=== PATIENT | female | born 1935 | race Caucasian/White ===

== ENCOUNTER 2017-01-14 07:57 | Emergency (ER) ==
[2017-01-14 09:27] LABS: URINE CULTURE NEEDED? NO; URINE MICRO REVIEW NEEDED? NO; URINE SOURCE CLEAN CATCH
[2017-01-14 09:27] LABS: MANUAL DIFF NEEDED? NO
[2017-01-14 09:31] LABS: BILIRUBIN URINE NEGATIVE (NEGATIVE); BLOOD URINE SMALL (NEGATIVE); COLOR YELLOW; GLUCOSE URINE NEGATIVE (NEGATIVE); LEUKOCYTES URINE NEGATIVE (NEGATIVE); NITRITE URINE NEGATIVE (NEGATIVE); PH URINE 5.5; PROTEIN URINE 50 mg/dL (NEGATIVE); SP GRAVITY URINE 1.019; TURBIDITY URINE HAZY (CLEAR); UROBILINOGEN URINE NORMAL (NORMAL)
[2017-01-14 09:31] LABS: BASO% 0.1 % (0.0-0.8); HEMATOCRIT 38.6 % (37.0-47.0); HEMOGLOBIN 13.1 g/dL (12.0-16.0); LYMPH# 0.64 X1000 (1.2-3.4); LYMPH% 8.2 % (20.5-51.1); MCH 29.5 PG (27-31); MCHC 33.9 g/dL (33-37); MCV 86.9 FL (81-99); MONO# 0.86 X1000 (0.11-0.59); MPV 10.2 FL (7.4-10.4); NEUT% 80.7 % (42.2-75.2); PLT 226 X1000 (130-400); RBC 4.44 XMIL (4.2-5.4)
[2017-01-14 09:33] LABS: UR EPITHELIAL CELLS <10 /HPF (<10); URINE BACTERIA NEGATIVE /HPF; URINE RBC <10 /HPF (<10); URINE WBC <10 /HPF (<10)
--- NOTE | 2017-01-14 09:34 | PROVIDER DOCUMENTATION ---
HPI-General Adult - General Chief Complaint: Altered Mental Status Stated Complaint: confusion Time Seen by Provider: 01/14/17 08:47 Source: patient Allergies/Adverse Reactions: Patient Allergies Allergy/AdvReac Type Severity Reaction Status Date / Time No Known Allergies Allergy Verified 01/14/17 08:07 Home Medications: Home Medication List Medication Instructions Recorded Confirmed Last Taken Type Darifenacin Hydrobromide 7.5 mg PO DAILY 01/14/17 01/14/17 Unknown History [Darifenacin ER] Levothyroxine [Synthroid] 112 microgm PO DAILY 01/14/17 01/14/17 Unknown History Oxybutynin Chloride [Oxybutynin 10 mg PO DAILY 01/14/17 01/14/17 Unknown History Chloride ER] - History of Present Illness -Gen Adult Nature of Presenting Problems: Pt is an 81 yof who came to the ED with a cc of altered mental status . Pt family called her this morning and they report she was talking out of her head not making any since. When the family came to her house they saw that all of her stuff was on the floor, they asked her why and she said "I don't know." The pt reports she hasn't eaten in two days but isn't hungry. Location of Pain/Injury: reports: none Pain Radiation: reports: no radiation Quality of Pain: reports: none Onset/Duration: reports: unsure Timing: reports: still present Context/Activities at Onset: reports: none Modifying Factors: improves with: nothing Associated Symptoms: reports: denies symptoms Similar Symptoms Previously?: No Recently seen or treated by another doctor?: No Review of Systems - Adult - REVIEW OF SYSTEMS - ADULT Constitutional: denies: chills, fever Eyes: denies: decreased vision, double vision Ears, Nose, Mouth & Throat: reports: no symptoms reported Cardiovascular: reports: no symptoms reported Respiratory: reports: no symptoms reported Gastrointestinal: denies: diarrhea, nausea, vomiting Genitourinary: reports: no symptoms reported Musculoskeletal: reports: no symptoms reported Integumentary: reports: no symptoms reported Neurological: reports: no symptoms reported Psychiatric: reports: other (altered mental status). denies: anti-depressant use, emotional problems Endocrine: reports: no symptoms reported Hematologic/Lymphatic: reports: no symptoms reported Allergic/Immunologic: reports: no symptoms reported All Other Systems: Reviewed and Negative Past History - Adult - PAST MEDICAL HISTORY-ADULT Review of Records: reports: Old Records Reviewed, Nursing Assessment Review Major Childhood Illnesses: reports: denies history Cardiovascular: reports: denies history Respiratory: reports: denies history Gastrointestinal: reports: denies history Obstetrical/Gynecological: reports: denies history Genitourinary: reports: denies history Musculoskeletal: reports: denies history Neurological: reports: dementia Endocrine/Immune: reports: thyroid disorder Other Conditions: reports: denies history - PRIOR SURGERIES/PROCEDURES Surgical/Procedure History: reports: hysterectomy - IMMUNIZATION STATUS Childhood Immunizations: See Nurse Assessment Flu Vaccine: See Nurse Assessment - FAMILY HISTORY Family History: reviewed, not pertinent Physical Exam-General - CONSTITUTIONAL General Appearance: alert, no apparent distress - EYES Eyes: PERRL/EOMI, pink conjunctivae, fundi clear, no AV nicking - HEAD, EARS, NOSE, MOUTH & THROAT HENMT: normocephalic/atraumatic, moist mucous membranes, normal ENT inspection, TMs normal, pharynx normal - NECK Neck: non-tender - RESPIRATORY Respiratory: chest non-tender, lungs clear, normal breath sounds, no pleuratic chest pain, no respiratory distress, no accessory muscle use - CARDIOVASCULAR Cardiovascular: normal peripheral pulses, regular rate, rhythm, no edema, no gallop, no JVD, no murmur - GASTROINTESTINAL (ABDOMEN) Abdominal Exam: normal bowel sounds, non tender - LYMPHATIC Lymphatic: no adenopathy - MUSCULOSKELETAL Back Exam: normal inspection - SKIN Integumentary: normal color, warm/dry - NEUROLOGIC Neurologic: grossly normal - PSYCHIATRIC Psych/Mental Status: disoriented x 3 Progress - PLAN OF CARE/RESULTS Progress/Plan/Lab Results: Vital Signs - 24 hr 01/14/17 07:57 Temperature 98.2 F Pulse Rate 87 Respiratory 16 Rate Blood Pressure 148/69 O2 Sat by Pulse 97 Oximetry Orders Category Date Time Status CHEST-PORTABLE [RAD] Stat Exams 01/14/17 08:48 Ordered HEAD W/O CONTRAST [CT] Stat Exams 01/14/17 08:48 Taken BNP [PRO B-NATRIURETIC PEPTIDE] Stat Lab 01/14/17 08:50 Received CBC WITH ELECTRONIC DIFF [HEME] Stat Lab 01/14/17 08:50 Results COMPREHENSIVE METABOLIC PANEL [CHEM] Stat Lab 01/14/17 08:50 Received FOLATE Stat Lab 01/14/17 08:50 Received FREE T4 Stat Lab 01/14/17 08:50 Received MAGNESIUM [CHEM] Stat Lab 01/14/17 09:05 Completed TROPONIN T Stat Lab 01/14/17 09:05 Received TSH Stat Lab 01/14/17 08:50 Received URINALYSIS W/POSS RFLX CULT [URINALYSIS] Stat Lab 01/14/17 09:15 Results EKG [EKG] Stat Ther 01/14/17 08:47 Ordered Laboratory Tests 01/14/17 01/14/17 09:05 09:15 Magnesium 2.0 Urine Source CLEAN CATCH - EKG 1 Time of EKG reading by physician:: 09:05 EKG Read and Signed by:: Krishan Mireles EKG Interpretation (*Must complete 3 of following elements*): Normal Rate: 83 Rhythm: NSR - XRAY 1 XRAY Study: Chest XRAY Interpretation: unremarkable - CT/MRI 1 CT Study: Head CT Results: atrophy and chronic microvascular changes no bleed or mass Departure - Departure Time of Disposition Order: 10:16 DIAGNOSIS: Delirium Disposition: HOME 01 Certified Medical Emergency: Emergent Condition: Stable Additional Instructions: ED Follow Up Instructions: You have been treated by a care provider in the Emergency Department. These instructions are being provided to you so you can have an understanding of how to care for yourself upon discharge. Upon discharge from the Emergency Department, you are responsible for making arrangements for follow-up care by a physician of your choice. Take all prescribed medications as directed. Return to the Emergency Department immediately for any new or worsening symptoms. You may call the Physician Referral phone number at [phone] to obtain a list of Physicians who are taking new patients. Attestation - Scribe Verification/Attestation Scribe:: Kari Trotter Acting as Scribe for:: Krishan Mireles Scribe documention review:: This chart was documented by a scribe and accurately reflects the service the provider performed and the decisions made by the provider.
[2017-01-14 10:04] LABS: ALBUMIN 4.3 g/dL (3.5-5.0); CALCIUM 9.4 mg/dL (8.8-10.2); TOTAL BILIRUBIN 0.53 mg/dL (0.20-1.00); TOTAL PROTEIN 7.5 g/dL (6.3-8.3)
--- NOTE | 2017-01-14 10:12 | Diag Imaging Result Document ---
PROCEDURE NAME: CHEST-PORTABLE - 01/14/2017 AP PORTABLE CHEST: TIME: 0930 hours. FINDINGS: There are no previous studies. There may be some granulomata present laterally in the lower right upper lobe. The heart size and pulmonary vascularity are within normal limits. IMPRESSION: No evidence of acute disease.
[2017-01-14 10:14] LABS: FREE T4 1.44 ng/dL (0.93-1.70)
--- NOTE | 2017-01-14 10:25 | Diag Imaging Result Document ---
PROCEDURE NAME: HEAD W/O CONTRAST - 01/14/2017 CT OF THE HEAD WITHOUT CONTRAST: FINDINGS: There are calcifications in the internal carotid arteries bilaterally. There is generalized cerebral atrophy. There is no evidence of mass effect, bleed, or abnormal extraaxial fluid collection. There is a subcentimeter lacune present in the posterior attainment on the right side. No previous studies are available for comparison. IMPRESSION: Chronic ischemic changes. No evidence of acute intracranial disease.
[2017-01-14 12:23] VITALS: BP 129/75
== END 2017-01-14 12:26 | disposition home or self-care (01) ==
LOC: EDBD → ED 07:57
DX: R41.0 Disorientation, unspecified (principal); R41.82 Altered mental status, unspecified; T14.8 Other injury of unspecified body region; E07.9 Disorder of thyroid, unspecified; F03.90 Unspecified dementia, unspecified severity, without behavioral disturbance, psychotic disturbance, mood disturbance, and anxiety; Z79.899 Other long term (current) drug therapy; W19.XXXA Unspecified fall, initial encounter
CPT/HCPCS: 70450; 71010; 80053; 81001; 82746; 83735; 83880; 84439; 84443; 84484; 85025; 93005